=== PATIENT | male | born 1995 | race Caucasian/White ===

== ENCOUNTER 2023-08-24 16:43 | Emergency (ER) | payer OTHER ==
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
[2023-08-24 17:28] VITALS: RESP 18; TEMP 98.2
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
[2023-08-24] MEDS ORDERED: FLUORESCEIN STRIPS 1 MG STRIP RIGHT EYE ONE (19:22)
[2023-08-24] MEDS ORDERED: IBUPROFEN 800 MG TAB PO STA (19:22)
[2023-08-24] MEDS ORDERED: PROPARACAINE 0.5% OPHTH DROPS 15 ML BTL LEFT EYE STA (19:22)
[2023-08-24] MEDS ORDERED: LIDOCAINE 5% PATCH TOPICAL SCH (19:30)
[2023-08-24] MEDS ORDERED: traMADol 50 MG TAB PO STA (19:57)
[2023-08-24] MEDS ORDERED: TOBRA-DEXAMET 0.3-0.1% OPHTH DROPS 2.5 ML BTL LEFT EYE SCH (20:00)
[2023-08-24 21:04] VITALS: BP 151/72; PULSE 68
== END 2023-08-24 20:50 | disposition home or self-care (01) ==
LOC: EC 16:43
DX: S22.31XA Fracture of one rib, right side, initial encounter for closed fracture (principal); H57.12 Ocular pain, left eye; F19.10 Other psychoactive substance abuse, uncomplicated; Y04.8XXA Assault by other bodily force, initial encounter
CPT/HCPCS: 70450; 70486; 72125; 99284